=== PATIENT | male | born 1990 | race Hispanic/Latino ===

== ENCOUNTER 2021-09-05 00:15 | Emergency (ER) | payer OTHER, SELFPAY ==
--- OUTSIDE RECORDS SUMMARY | 2021-09-05 00:18 | XMS REPORT | Continuity of Care Document ---
:1990 Author Organization [facility] t Address [address] [place] [address] Care Team Providers Name Role Phone PCP, DOES NOT HAVE A Primary Care Physician Unavailable Singer MARTINEZ Attending Clinician Attending Clinician Unavailable GERONIMO NUNEZ Attending Clinician Unavailable Iris WILDER Attending Clinician Unavailable Problems Condition Condition Condition Status Onset Resolution Last Treating Co mments Source Name Details Category Date Date Treatment Clinician Date No known No known Disease Unive rs active active ity of problems problems [facility] Allergies, Adverse Reactions, Alerts Allergy Allergy Status Severity Reaction(s) Onset Inactive Treating Comm ents Source Name Type Date Date Clinician NO KNOWN Drug Active Univers ALLERGIE Class ity of S [facility] Social History Social Habit Start Date Stop Date Quantity Comments Source Exposure to Not sure [facility] SARS-CoV-2 (event) Medica l Branch Sex Assigned At [birth year] [facility] 00:00:00 00:00:00 [facility] Smoking Status Start Date Stop Date Source Unknown if ever smoked [facility] Medications Ordered Filled Start Stop Current Ordering Indication Dosage Frequency Signature Comments Components Source Medication Medication Date Date Medication? Clinician (SIG) Name Name maalox:diph 2020-08- No 15mL 15 mL, Uni vers enhydrAMINE 2-18 12-18 Oral, ity of :lidocaine 06:15: 06:15 ONCE, 1 [place] as 2 % viscous 00 :00 dose, On Medi cassi 1:1:1 Sat Branch (FIRST-MOUT 08/10/21 [facility]) at 0030, oral Routine suspension 15 mL ondansetron 2020-08 No 4mg 4 mg, Slow Univers (ZOFRAN 2-18 12-18 IV Push, ity of (PF)) 06:15: 05:14 ONCE, 1 [place] injection 4 00 :00 dose, On Medi cassi mg Sat Branch 08/10/21 at 0015, Routine NaCl 0.9% 2020-08- No 1000mL at 999 Uni vers (NS) bolus 2-18 12-18 mL/hr, ity of infusion 05:15: 06:15 1,000 mL, [place] as 1,000 mL 00 :00 IV Medical Infusion, Branch ONCE, 1 dose, On 08/09/21 at 2315, STAT sucralfate 2020-08 Yes [id number] 1g Take 1 U nivers 1 gram 2-17 tablet by ity of tablet 00:00: mouth [place] 00 before Medical meals and Branch at bedtime. dicyclomine 2020-08 Yes [id number] 10mg Take 1 Univers (BENTYL) 10 2-17 capsule by it y of mg capsule 00:00: mouth [place] 00 every 8 Medical (eight) Branch hours as needed for Abdominal pain. ondansetron 2020-08 Yes [id number] 4mg Take 1 Univers 4 mg 2-17 tablet by ity of disintegrat 00:00: mouth [place] ing tablet 00 every 8 Medica l (eight) Branch hours as needed for Nausea and Vomiting (N/V). omeprazole 2020-08- Yes [id number] 20mg Take 1 Univers 20 mg 2-17 01-17 capsule by ity of capsule 00:00: 05:59 mouth [place] 00 :00 daily for Medical 30 days. Branch traMADoL 50 2019-08 Yes [id number] 50mg Take 1 Univ ers mg tablet 0-07 tablet by ity o f 00:00: mouth [place] 00 every 6 Medical (six) Branch hours as needed for Pain (scale 7-10). Indication s: acute pain ondansetron 2019-08- No [id number] 4mg Take 1 Univers (ZOFRAN 0-07 12-17 tablet by ity of ODT) 4 mg 00:00: 00:00 mouth [place] disintegrat 00 :00 every 8 Medic al ing tablet (eight) Branch hours as needed for Nausea and Vomiting (N/V). cyclobenzap Yes [id number] 5mg Take 1 Univers rine 5 mg 9-29 tablet by ity o f tablet 00:00: mouth 3 [place] 00 (three) Medical times Branch daily. traMADol Yes [id number] 50mg Take 1 Uni vers (ULTRAM) 50 9-29 tablet by ity of mg tablet 00:00: mouth [place] 00 every 8 Medical (eight) Branch hours as needed for Pain (scale 4-6). acetaminoph Yes 1{tbl} Take 1 Un bryanna en-codeine 8-09 tablet by ity of 300-30 mg 00:00: mouth [place] tablet 00 every 4 Medical (four) Branch hours as needed for Pain (scale 4-6) (Cough). ketorolac Yes 10mg Take 1 Univer s (TORADOL) 7-27 tablet by ity o f 10 mg 00:00: mouth [place] tablet 00 every 6 Medical (six) Branch hours as needed for Pain (scale 7-10). tamsulosin Yes .4mg Take 1 Unive rs (FLOMAX) 7-27 capsule by ity o f 0.4 mg 24 00:00: [place] capsule 00 bedtime. Medic al Branch Vital Signs Vital Name Observation Time Observation Value Comments Source Systolic blood 2021-08-10 04:50:00 172 mm[Hg] [facility]iver [facility] Diastolic blood 2021-08-10 04:50:00 111 mm[Hg] Unive rsity [facility] Heart rate 2021-08-10 04:50:00 93 /min [facility] Body temperature 2021-08-10 04:50:00 37.11 [facility] Respiratory rate 2021-08-10 04:50:00 18 /min [facility] Body height 2021-08-10 04:50:00 177.8 cm [facility] Body weight 2021-08-10 04:50:00 145.151 kg Universi [facility] [place] [facility] BMI 2021-08-10 04:50:00 45.92 kg/m2 [facility] saturation in 2021-08-10 04:50:00 99 /min [facility] Arterial blood by [facility] Pulse oximetry Branch Procedures Procedure Date / Time Performed Performing Clinician Sourc e LIPASE 2021-08-10 05:14:00 Singer [facility] COMP. METABOLIC PANEL 2021-08-10 05:14:00 [facility] [place] ([id number]) [facility] CBC WITH DIFF 2021-08-10 05:14:00 [place] [facility] URINALYSIS 2021-08-10 05:14:00 Bledsoe, [facility] NOTICE OF PRIVACY 2021-08-10 04:39:49 Doctor Unassigned, No Univ [facility] PRACTICES Name Medical [place] CONSENT/REFUSAL FOR 2021-08-10 04:39:37 Doctor Unassigned, No [facility] DIAGNOSIS AND Name [facility] TREATMENT Encounters Start End Encounter Admission Attending Care Care Encounter Source Date/Time Date/Time Type Type Clinicians Facility Department ID 2021-08-09 2021-08-10 Emergency Singer [facility] [id number] Univers 22:53:00 00:43:00 Kelly SANCHEZ [id number] i [facility] [id number] [facility] [id number] [facility] 084 Branch 2021-08-09 2021-08-10 Emergency X SINGER [facility] ERT [id number] Univers 22:53:00 00:43:00 KELLY guerrero [facility] 2020-06-12 2020-06-13 Emergency E SUSSY NUNEZ [facility] [id number] [facility] 23:07:00 02:46:00 HOMERO 2020-05-30 2020-05-30 Emergency X TINA [facility] ERT [id number] Univers 17:03:00 17:03:00 YAIMA guerrero [facility] Results Test Description Test Time Test Comments Results Result Comments Source COMP. METABOLIC PANEL (99358) 2021-08-10 05:40:24 Test Item Value Reference Range Interpretation Comme nts NA (test code = 3677448494) 139 mmol/L 135-145 K (test code = 7668983600) 4.1 mmol/L 3.5-5.0 CL (test code = 3730170345) 103 mmol/L 98-108 CO2 TOTAL (test code = 0898760428) 26 mmol/L 23-31 AGAP (test code = 7766300991) 2-16 BUN (test code = 5672891233) 19 mg/dL 7-23 GLUCOSE (test code = 2721479307) 106 mg/dL 70-110 CREATININE (test code = 0.87 mg/dL 0.60-1.25 7862240424) TOTAL BILI (test code = 0.5 mg/dL 0.1-1.7 7551661530) CALCIUM (test code = 7993659907) 9.1 mg/dL 8.6-10.6 T PROTEIN (test code = 1687552724) 7.6 g/dL 6.3-8.2 ALBUMIN (test code = 5604168846) 4.3 g/dL 3.5-5.0 ALK PHOS (test code = 4484452807) 129 U/L 34-122 H ALTv (test code = 1742-6) 56 U/L 5-50 H AST(SGOT) (test code = 4567078739) 35 U/L 13-40 eGFR (test code = 4653701289) mL/min/1.73m2 REY (test code = REY) Association of Glomerular Filtration Rate (GFR) and Staging of Kidney Disease* + +-------- + ------+| GFR (mL/min/1.73 m2) ?| With Kidney Damage ?| ?Without Kidney Damage+ +-- + +| ?>90 ?| ?Stage one ?| ? Normal ?+ +------- + -------+| ?60-89 ?| ?Stage two ?| ? Decreased GFR ? + +-------- + ------+| ?30-59 ?| ?Stage three ?| ? Stage three ? + +-------- + ------+| ?15-29 ?| ?Stage four ? | ? Stage four ?+ +------- + -------+| ?<15 (or dialysis) ? ?| ?Stage five ? | ? Stage five ?+ +------- + -------+ *Each stage assumes the associated GFR level has been in effect for at least three months. ?Stages 1 to 5, with or without kidney disease, indicate chronic kidney disease. Notes: Determination of stages one and two (with eGFR >59mL/min/1.73 m2) requires estimation of kidney damage for at least three months as defined by structural or functional abnormalities of the kidney, manifested by either:Pathological abnormalities or Markers of kidney damage (including abnormalities in the composition of the blood or urine or abnormalities in imaging tests). Lab Interpretation (test code = Abnormal 61037-1) [facility] [place] [facility] 05:40:09 Test Item Value Reference Range Interpretation Comments LIPASE (test code = 6936963164) 79 U/L 0-220 Lab Interpretation (test code = Normal 52877-5) [facility] [place] [facility] WITH [id number] 05:28:25 Test Item Value Reference Range Interpretation Comments WBC (test code = See_Comment [Automated 4390-2) message] The sy stem which generated this result transmitted reference range : 4.20 - 10.70 10*3/?L. The reference range was not used to interpret this result as normal/abnormal . RBC (test code = See_Comment [Automated 139-8) message] The sy stem which generated this result transmitted reference range : 4.26 - 5.52 10*6/?L. The reference range was not used to interpret this result as normal/abnormal . HGB (test code = 13.2 g/dL 12.2-16.4 718-7) HCT (test code = 40.4 % 38.4-49.3 4544-3) MCV (test code = 89.2 fL 81.7-95.6 787-2) MCH (test code = 29.1 pg 26.1-32.7 785-6) MCHC (test code = 32.7 g/dL 31.2-35.0 786-4) RDW-SD (test code = 44.0 fL 38.5-51.6 34068-4) RDW-CV (test code = 13.5 % 12.1-15.4 788-0) PLT (test code = See_Comment H [Automated 777-3) message] The sy stem which generated this result transmitted reference range : 150 - 328 10*3/ ?L. The reference r silvia was not used to interpret this result as normal/abnormal . MPV (test code = 9.5 fL 9.8-13.0 L 88406-7) NRBC/100 WBC (test See_Comment [Automat ed code = 7546961324) message] The system which generated this result transmitted reference range : 0.0 - 10.0 /100 WBCs. The refer ence range was not u sed to interpret th is result as normal/abnormal . NRBC x10^3 (test code <0.01 See_Comment [Auto mated = 5152435479) message] The s ystem which generated this result transmitted reference range : 10*3/?L. The reference range was not used to interpret this result as normal/abnormal . GRAN MAT (NEUT) % 67.5 % (test code = 770-8) IMM GRAN % (test code 0.40 % = 3971232836) LYMPH % (test code = 23.6 % 736-9) MONO % (test code = 6.0 % 5905-5) EOS % (test code = 1.6 % 713-8) BASO % (test code = 0.9 % 706-2) GRAN MAT x10^3(ANC) 6.40 10*3/uL 1.99-6.95 (test code = 8259716376) IMM GRAN x10^3 (test 0.04 10*3/uL 0.00-0.06 code = 7913523140) LYMPH x10^3 (test code 2.24 10*3/uL 1.09-3.23 = 731-0) MONO x10^3 (test code 0.57 10*3/uL 0.36-1.02 = 742-7) EOS x10^3 (test code = 0.15 10*3/uL 0.06-0.53 711-2) BASO x10^3 (test code 0.09 10*3/uL 0.01-0.09 = 704-7) Lab Interpretation Abnormal (test code = 99173-0) [facility]"
[2021-09-05] MEDS ORDERED: ONDANSETRON 4 MG/2 ML VIAL ONE (00:40)
[2021-09-05] MEDS ORDERED: KETOROLAC 30 MG/ML INJ ONE (00:40)
[2021-09-05] MEDS ORDERED: NA CHLORIDE 0.9% 1,000 ML ONE (00:40)
[2021-09-05 01:10] LABS: Absolute Lymphocytes (CBC) 1.4 K/uL (0.7-4.9); Hematocrit 42.4 % (39.6-49.0); Lymphocytes % 13.2 % (15.3-44.8); MPV 7.6 fL (7.6-11.3); RBC Red Blood Cell Count 4.88 M/uL (4.33-5.43)
[2021-09-05 01:19] LABS: ALT/SGPT 51 U/L (12-78); AST/SGOT 19 U/L (15-37); Albumin 3.5 g/dL (3.4-5.0); Alkaline Phosphatase 141 U/L (45-117); BUN Blood Urea Nitrogen 11 mg/dL (7-18); Bicarbonate 28 mmol/L (21-32); Bilirubin Direct < 0.1 mg/dL (0-0.2); Bilirubin Total 0.4 mg/dL (0.2-1.0); Glucose Level 107 mg/dL (74-106); Lipase 85 U/L (73-393); Potassium 3.5 mmol/L (3.5-5.1); Protein, Total 8.1 g/dL (6.4-8.2); Sodium Level 139 mmol/L (136-145)
[2021-09-05 01:21] LABS: SARS-COV-2 RT PCR NEGATIVE (NEGATIVE)
--- NOTE | 2021-09-05 01:34 | ER ---
Nurse's Notes [facility] Name: Chivo Townsend Age: 31 yrs Sex: Male : 1990 Arrival Date: 09/05/2021 Time: 00:19 Bed 17 Private MD: Diagnosis: Upper abdominal pain, unspecified;Nausea with vomiting, unspecified;Diarrhea, unspecified Presentation: 09/05 00:26 Chief complaint: Patient states: " I have been having a lot of abdominal pain. The last tw5 time I had this they told me it was pancreatitis. The pain started yesterday, I had a fever, diarrhea and vomiting. It has been intense and stayed consistent for the past three hours. ". Coronavirus screen: Vaccine status: Patient reports being unvaccinated. Ebola Screen: Patient negative for fever greater than or equal to 101.5 degrees Fahrenheit, and additional compatible Ebola Virus Disease symptoms Patient denies exposure to infectious person. Patient denies travel to an Ebola-affected area in the 21 days before illness onset. Initial Sepsis Screen: Does the patient meet any 2 criteria? HR > 90 bpm. Does the patient have a suspected source of infection? No. Patient's initial sepsis screen is negative. Risk Assessment: Do you want to hurt yourself or someone else? Patient reports no desire to harm self or others. Onset of symptoms was September 04, 2021. 00:26 Method Of Arrival: Ambulatory tw5 00:26 Acuity: MCKENZIE 3 tw5 Triage Assessment: 00:29 General: Appears in no apparent distress. Behavior is calm, cooperative, appropriate tw5 for age. Pain: Complains of pain in epigastric area Pain currently is 8 out of 10 on a pain scale. GI: Reports diarrhea, nausea, vomiting. Historical: - Allergies: 00:29 No Known Allergies; tw5 - PMHx: 00:29 Pancreatitis; chronic kidney disease; tw5 - PSHx: 00:29 None; tw5 - Immunization history:: Flu vaccine is not up to date. Adult Immunizations up to date, Client reports having NOT received the Covid vaccine. - Social history:: Smoking status: Patient reports the use of cigarette tobacco products, couple cigarettes a day , Patient uses alcohol, weekly. Screenin:32 Abuse screen: Denies threats or abuse. Denies injuries from another. Nutritional tw5 screening: No deficits noted. Tuberculosis screening: No symptoms or risk factors identified. Fall Risk No fall in past 12 months (0 pts). Secondary diagnosis (15 points). Assessment: 00:44 Reassessment: The p[patient has a history of pancreatitis. He currently drinks and sv1 occasionally smokes. NKDA. . 00:46 GI: Abdomen is tender to palpation Abdomen has rebound tenderness X 4 quads. sv1 01:02 General: Appears in no apparent distress. Behavior is calm, cooperative, appropriate kd3 for age. Neuro: Level of Consciousness is awake, alert, obeys commands. GI: Bowel sounds present X 4 quads. 01:57 Reassessment: Patient and/or family updated on plan of care and expected duration. Pain kd3 level reassessed. Patient is alert, oriented x 3, equal unlabored respirations, skin warm/dry/pink. Patient states feeling better. Patient states symptoms have improved. Vital Signs: 00:26 BP 151 / 113; Pulse 100; Resp 18; Temp 98.4(O); Pulse Ox 98% on R/A; Weight 145.15 kg; tw5 Height 5 ft. 10 in. (177.80 cm); Pain 8/10; 00:43 BP 157 / 106; Pulse 98; Resp 18; Temp 98.2; Pulse Ox 98% ; Weight 145.15 kg; Height 5 sv1 ft. 10 in. (177.80 cm); Pain 7/10; 01:03 BP 162 / 82; Pulse 84; Resp 16; Pulse Ox 100% on R/A; kd3 01:57 BP 157 / 81; Pulse 92; Resp 17; Pulse Ox 100% on R/A; kd3 00:43 Body Mass Index 45.91 (145.15 kg, 177.80 cm) sv1 ED Course: 00:19 Patient arrived in ED. bp1 00:21 Marsha Mcpherson FNP-C is PHCP. kb 00:21 Agata Guerrero MD is Attending Physician. kb 00:29 Triage completed. tw5 00:29 Arm band placed on right wrist. tw5 00:36 Nesha Woodward RN is Primary Nurse. kd3 00:40 Inserted saline lock: 20 gauge in right antecubital area, using aseptic technique. ds4 Blood collected. 00:43 Patient has correct armband on for positive identification. Placed in gown. Bed in low sv1 position. Call light in reach. Side rails up X 1. 00:57 US Abdomen Limited In Process Unspecified. EDMS 01:58 No provider procedures requiring assistance completed. IV discontinued, intact, kd3 bleeding controlled, No redness/swelling at site. Pressure dressing applied. Administered Medications: 01:03 Drug: NS 0.9% 1000 ml Route: IV; Rate: 1000 ml; Site: right antecubital; kd3 01:03 Drug: Zofran (Ondansetron) 4 mg Route: IVP; Site: right antecubital; kd3 01:03 Drug: Ketorolac 15 mg Route: IVP; Site: right antecubital; kd3 Outcome: 01:33 Discharge ordered by . kb 01:58 Discharged to home ambulatory. kd3 01:58 Condition: stable 01:58 Discharge instructions given to patient, Instructed on discharge instructions, follow up and referral plans. medication usage, Demonstrated understanding of instructions, follow-up care, medications, Prescriptions given X 2. 01:58 Patient left the ED. kd3 Signatures: Dispatcher [employer] EDMS Marsha Mcpherson, CLINICAL RN MANAGER-C CLINICAL RN MANAGER-Ckb Tay Ramirez ds4 Medina Arriaga Tiffany tw5 Nesha Woodward RN RN kd3 Kirit Barone RN RN sv1
--- NOTE | 2021-09-05 01:34 | EDPHYS ---
Physician Documentation [facility] Name: Chivo Townsend Age: 31 yrs Sex: Male : 1990 Arrival Date: 09/05/2021 Time: 00:19 Bed 17 Private MD: ED Physician Agata Guerrero HPI: 09/05 01:21 This 31 yrs old Male presents to ER via Ambulatory with complaints of kb Abdominal Pain. 01:21 The patient presents with abdominal pain in the epigastric area, in the upper abdomen. kb Onset: The symptoms/episode began/occurred yesterday. The symptoms do not radiate. Associated signs and symptoms: Pertinent positives: nausea, vomiting, and diarrhea, fever. The symptoms are described as constant. Modifying factors: The symptoms are alleviated by nothing, the symptoms are aggravated by nothing. Severity of pain: At its worst the pain was moderate in the emergency department the pain is unchanged. The patient has not experienced similar symptoms in the past. The patient has not recently seen a physician. Pt reports abd pain and subjective fever last night. Today has had n/v/d and abd pain. . Historical: - Allergies: 00:29 No Known Allergies; tw5 - PMHx: 00:29 Pancreatitis; chronic kidney disease; tw5 - PSHx: 00:29 None; tw5 - Immunization history:: Flu vaccine is not up to date. Adult Immunizations up to date, Client reports having NOT received the Covid vaccine. - Social history:: Smoking status: Patient reports the use of cigarette tobacco products, couple cigarettes a day , Patient uses alcohol, weekly. ROS: 01:20 Constitutional: Negative for fever, chills, and weight loss. kb 01:20 Abdomen/GI: Positive for abdominal pain, nausea, vomiting, and diarrhea. 01:20 All other systems are negative. Exam: 01:20 Constitutional: This is a well developed, well nourished patient who is awake, alert, kb and in no acute distress. Head/Face: Normocephalic, atraumatic. ENT: Moist Mucous membranes Cardiovascular: Regular rate and rhythm with a normal S1 and S2. No gallops, murmurs, or rubs. No pulse deficits. Respiratory: Respirations even and unlabored. No increased work of breathing. Talking in full sentences Skin: Warm, dry with normal turgor. Normal color. MS/ Extremity: Pulses equal, no cyanosis. Neurovascular intact. Full, normal range of motion. Neuro: Awake and alert, GCS 15, oriented to person, place, time, and situation. Moves all extremities. Normal gait. Psych: Awake, alert, with orientation to person, place and time. Behavior, mood, and affect are within normal limits. 01:20 Abdomen/GI: Inspection: abdomen appears normal, Bowel sounds: normal, in all quadrants, Palpation: soft, in all quadrants, mild abdominal tenderness, in the epigastric area and right upper quadrant. Vital Signs: 00:26 BP 151 / 113; Pulse 100; Resp 18; Temp 98.4(O); Pulse Ox 98% on R/A; Weight 145.15 kg; tw5 Height 5 ft. 10 in. (177.80 cm); Pain 8/10; 00:43 BP 157 / 106; Pulse 98; Resp 18; Temp 98.2; Pulse Ox 98% ; Weight 145.15 kg; Height 5 sv1 ft. 10 in. (177.80 cm); Pain 7/10; 01:03 BP 162 / 82; Pulse 84; Resp 16; Pulse Ox 100% on R/A; kd3 01:57 BP 157 / 81; Pulse 92; Resp 17; Pulse Ox 100% on R/A; kd3 00:43 Body Mass Index 45.91 (145.15 kg, 177.80 cm) sv1 MDM: 00:28 Patient medically screened. kb 01:20 Data reviewed: vital signs, nurses notes. Data interpreted: Pulse oximetry: on room air kb is 100 %. Interpretation: normal. 01:32 Counseling: I had a detailed discussion with the patient and/or guardian regarding: the kb historical points, exam findings, and any diagnostic results supporting the discharge/admit diagnosis, lab results, radiology results, the need for outpatient follow up, a family practitioner, to return to the emergency department if symptoms worsen or persist or if there are any questions or concerns that arise at home. 09/05 00:29 Order name: Basic Metabolic Panel kb 09/05 99:29 Order name: CBC with Diff kb 09/05 99:29 Order name: Hepatic Function; Complete Time: kb 09/05 Order name: Lipase; Complete Time: 01:20 kb 01/13 00:29 Order name: COVID-19/FLU A+B (Document "Date of Onset" if Symptomatic); Complete Time: kb 09/05 00:29 Order name: Basic Metabolic Panel; Complete Time: 01:20 EDMS 09/05 00:29 Order name: IV Saline Lock; Complete Time: 00:42 kb 09/05 00:29 Order name: Labs collected and sent; Complete Time: 00:42 kb 09/05 00:29 Order name: US Abdomen Limited kb 09/05 00:29 Order name: CBC with Automated Diff; Complete Time: 01:18 EDMS Administered Medications: 01:03 Drug: NS 0.9% 1000 ml Route: IV; Rate: 1000 ml; Site: right antecubital; kd3 01:03 Drug: Zofran (Ondansetron) 4 mg Route: IVP; Site: right antecubital; kd3 01:03 Drug: Ketorolac 15 mg Route: IVP; Site: right antecubital; kd3 Disposition: 08:05 Co-signature as Attending Physician, Agata Guerrero MD I agree with the assessment and sp3 plan of care. Disposition Summary: 09/05/21 01:33 Discharge Ordered Location: Home kb Condition: Stable kb Diagnosis - Upper abdominal pain, unspecified kb - Nausea with vomiting, unspecified kb - Diarrhea, unspecified kb Followup: kb - With: Emergency Department - When: As needed - Reason: Worsening of condition Followup: kb - With: Private Physician - When: 2 - 3 days - Reason: Recheck today's complaints, Continuance of care, Re-evaluation by your physician Discharge Instructions: - Discharge Summary Sheet kb - Viral Gastroenteritis, Adult, [id number] kb Forms: - Medication Reconciliation Form kb - Thank You Letter kb - Antibiotic Education kb - Prescription Opioid Use kb Prescriptions: - Zofran 4 mg Oral Tablet - take 1 tablet by ORAL route every 6 hours As needed; 20 tablet; Refills: 0, kb Product Selection Permitted - dicyclomine 20 mg Oral Tablet - take 1 tablet by ORAL route 4 times per day As needed; 20 tablet; Refills: 0, kb Product Selection Permitted Signatures: Dispatcher [employer] EDHI Marsha Mcpherson FNP-C FNP-Agata Angeles MD MD sp3 Terra Smith tw5 Nesha Woodward, RN RN kd3 Kirit Barone, RN RN sv1
[2021-09-05 02:06] VITALS: TEMP 98.2
[2021-09-05 02:08] VITALS: O2SAT 100
[2021-09-05 02:10] VITALS: BP 157/81
--- NOTE | 2021-09-05 12:41 | RAD REPORT ---
EXAM DESCRIPTION: Abdomen Exam Limited CLINICAL HISTORY: 31 years Male, ABD PAIN COMPARISON: None. TECHNIQUE: Sonographic imaging of the gallbladder was performed. FINDINGS: Small shadowing stones in the gallbladder are present. No evidence of gallbladder wall thi ckening. Common bile duct measures 3 mm in width and appears normal. There is increased echogenicity of the liver suggesting fatty changes. IMPRESSION: 1. Simple cholelithiasis. 2. Hepatic steatosis. Electronically signed by: Gene Duran MD 09/05/2021 1:15 AM BIOMEDICAL EQUIPMENT SPECIALIST Due to temporary technical issues with the PACS/Fluency reporting system, reports are being signed by the in house radiologist without review as a courtesy to ensure prompt reporting. The interpreting r adiologist is fully responsible for the content of the report.
== END 2021-09-05 01:58 | disposition home or self-care (01) ==
LOC: ER 00:15
DX: R10.10 Upper abdominal pain, unspecified (principal); R11.2 Nausea with vomiting, unspecified; R19.7 Diarrhea, unspecified; Z20.822 Contact with and (suspected) exposure to COVID-19
CPT/HCPCS: 0240U; 36415; 76705; 80048; 80076; 83690; 85025; 96374; 96375; 99284; J2405; J7030